=== PATIENT | male | born 1965 | race Caucasian/White ===

== ENCOUNTER 2024-02-13 16:14 | Emergency (ER) | payer OTHER, SELFPAY ==
--- NOTE | ~2024-02-13 | CT_ITS ---
EXAMINATION: CT abdomen pelvis wo con DATE: 02/13/2024 17:20 INDICATION: Low abdominal pain. Blood in stool. TECHNIQUE: Computed tomography (CT) of the abdomen and pelvis was performed without intravenous contr ast. Automated exposure control and iterative reconstruction technique were employed. The dose-length product was 1438.45 mGy-cm. COMPARISON: None. FINDINGS: The visualized portions of the lung bases demonstrate minimal atelectasis. No pleural effus ion. The heart size is normal. No pericardial effusion. There is diffuse hepatic steatosis. The gallb ladder, spleen, pancreas, adrenal glands, and kidneys are normal. There is no urolithiasis. There are scattered diverticula in the colon. There is wall thickening of the descending colon with surroundin g fat stranding, consistent with colitis. There are no dilated loops of bowel. The appendix is normal . There are no pathologically enlarged lymph nodes. There is no free intraperitoneal fluid. There is mild thoracic and lumbar spondylosis. IMPRESSION: 1. Colitis involving descending colon. Reviewed, dictated and finalized at location E.
[2024-02-13 16:16] VITALS: BP 164/89; PULSE 89; RESP 16; TEMP 36.3; O2SAT 100
--- NOTE | 2024-02-13 16:24 | ECG_ITS ---
SEE SCANNED COPY FOR CONFIRMED REPORT MTDD
--- NOTE | 2024-02-13 16:25 | ED.GIBLEED ---
HPI - GI Bleed General Chief complaint: GI Bleed Stated complaint: rectal bleeding Time Seen by Provider: 02/13/24 18:19 Focused HPI: 58 y/o M with history of hyperlipidemia presents to emergency department for blood in his vomit and stools that started yesterday. Patient states he had his tooth extracted 4 days ago and has been taking a lot of ibuprofen. States yesterday he had a watery bowel movement since and has been noticing blood with clots in his stool. States he vomited a few times which also had streaks of blood in it. He denies prior history of GI bleed, ulcers. He is not anticoagulated. He is reporting some intermittent left lower quadrant abdominal pain. Denies fever, urinary complaints. GENERAL: Well-appearing, well-nourished, and in no acute distress. HEAD: Normocephalic, atraumatic. CHEST: Clear to auscultation. ?No respiratory distress. HEART: Regular rate and rhythm.? NEURO: ?Alert and oriented x3. Patient screened in triage and initial orders placed.? ?Additional care and disposition to be based upon?diagnostic testing and treatment. Related Data Allergies Allergy/AdvReac Type Severity Reaction Status Date / Time No Known Allergies Allergy Unknown Verified 02/18/24 13:32 [facility] Family History Family History Father Family history of cardiovascular disease Acute myocardial infarction, Onset Age: 50 Social History Social History Smoking status: Current some day smoker Second hand tobacco smoke exposure: No Additional smoking assessment comments: Marijuana not tobacco user. Alcohol intake: current Substance use: current Substance use type: marijuana Lack of Transportation: No Lack of Food: Never True Current Housing: I Have Housing Concerned About Future Housing: No Difficulty Paying Gas/Electric Bills: No Difficulty Paying for Meds: No Currently Unemployed: No Education: Master's Degree or Higher Course Vital Signs Vital signs: Vital Signs Temperature 97.3 F L 02/13/24 16:16 Pulse Rate 89 02/13/24 16:16 Respiratory Rate 16 02/13/24 16:16 Blood Pressure 164/89 H 02/13/24 16:16 Pulse Oximetry 100 02/13/24 16:16 Oxygen Delivery Room Air 02/13/24 16:16 Temperature 97.8 F 02/13/24 20:14 Pulse Rate 62 02/13/24 20:14 Respiratory Rate 17 02/13/24 20:14 Blood Pressure 143/85 H 02/13/24 20:14 Pulse Oximetry 100 02/13/24 20:14 Oxygen Delivery Room Air 02/13/24 16:16 MDM - GI Bleed Lab Data 02/13/24 16:42 02/13/24 16:42 Labs: Lab Results 02/13/24 02/13/24 Range/Units 16:42 17:10 WBC 16.9 H (4.5-10.0) K/mm3 RBC 4.68 (4.6-6.20) M/mm3 Hgb 15.3 (14.0-18.0) g/dL Hct 43.5 (42.0-52.0) % MCV 92.9 (80-100) fl MCH 32.7 (26-34) pg MCHC 35.2 (32-36) g/dl RDW 12.0 (11.5-14.5) % Plt Count 271 (150-375) k/mm3 MPV 10.3 (7.4-10.4) fl Immature Gran % (Auto) 0.6 H (0-0.5) % Neut % (Auto) 87.9 H (45.5-73.1) % Lymph % (Auto) 5.5 L (18.3-44.2) % [place] % (Auto) 5.7 (2.6-8.5) % Eos % (Auto) 0.1 (0-4.4) % Baso % (Auto) 0.2 (0.2-1.2) % Lymph # (Auto) 0.92 (0.9-3.2) K/mm3 [place] # (Auto) 1.0 H (0.1-0.6) K/mm3 Eos # (Auto) 0.0 (0-0.3) K/mm3 Baso # (Auto) 0.0 (0.0-0.1) K/mm3 Abs Immat Gran (auto) 0.10 H (0.00-0.031) K/mm3 Absolute Neuts (auto) 14.9 H (1.3-6.7) K/mm3 Absolute Nucleated RBC 0.000 (0.0-0.012) K/mm3 Nucleated RBC % 0.0 (0.0-0.2) % PT 13.3 (11.1-14.7) Seconds INR 1.0 APTT 25.6 (22.3-36.8) Seconds Sodium 136 L (137-145) mmol/L Potassium 3.9 (3.4-5.0) mmol/L Chloride 103 (98-107) mmol/L Carbon Dioxide 26 (22-30) mmol/L Anion Gap 7 (4-12) mmol/L BUN 11 (9-20) mg/dL Creatinine 0.90 (0.7-1.3) mg/dL Estim Creat Clear Calc 105 ml/min Estimated GFR > 60 (59 - )
[2024-02-13 16:48] LABS: Basophils Percent Auto 0.2 % (0.2-1.2); Eosinophils Percent Auto 0.1 % (0-4.4); Hematocrit 43.5 % (42.0-52.0); Hemoglobin 15.3 g/dL (14.0-18.0); Immature Granulocyte Percent A 0.6 % (0-0.5); Lymphocytes Absolute Auto 0.92 K/mm3 (0.9-3.2); Lymphocytes Percent Auto 5.5 % (18.3-44.2); Mean Corpuscular HGB Conc 35.2 g/dl (32-36); Mean Corpuscular Hemoglobin 32.7 pg (26-34); Mean Corpuscular Volume 92.9 fl (80-100); Mean Platelet Volume 10.3 fl (7.4-10.4); Monocytes Percent Auto 5.7 % (2.6-8.5); Neutrophils Absolute Auto 14.9 K/mm3 (1.3-6.7); Neutrophils Percent Auto 87.9 % (45.5-73.1); Platelet Count Result 271 k/mm3 (150-375); Red Blood Count 4.68 M/mm3 (4.6-6.20); White Blood Count 16.9 K/mm3 (4.5-10.0)
[2024-02-13 16:59] LABS: Lactic Acid Reflex 1.5 mmol/L (0.7-2.0)
[2024-02-13 17:00] LABS: Prothrombin Time 13.3 Seconds (11.1-14.7)
[2024-02-13 17:01] LABS: Alanine Aminotransferase 31 U/L (6-50); Albumin Level 4.6 g/dL (3.5-5.1); Alkaline Phosphatase 76 U/L (38-126); Anion Gap 7 mmol/L (4-12); Aspartate Amino Transferase 25 U/L (17-59); Bilirubin,Total 0.8 mg/dL (0.2-1.3); Blood Urea Nitrogen 11 mg/dL (9-20); Calcium 9.4 mg/dL (8.4-10.2); Carbon Dioxide 26 mmol/L (22-30); Chloride 103 mmol/L (98-107); Estimated CRCL calculation 105 ml/min; Estimated Glomerular Filt Rate > 60; Glucose 169 mg/dL (65-110); Lipase 85 U/L (23-300); Magnesium 1.9 mg/dL (1.6-2.3); Partial Thromboplastin Time 25.6 Seconds (22.3-36.8); Potassium 3.9 mmol/L (3.4-5.0); Sodium 136 mmol/L (137-145)
[2024-02-13 17:17] LABS: Appearance Urine Clear (Clear); Bilirubin Urine Negative (Negative); Blood Urine Negative (Negative); Color Urine Yellow (Yellow); Glucose Urine UA Negative (Negative); Ketones Urine 2+ mg/dL (Negative); Leukocyte Esterase Ur Negative LEU/UL (Negative); Nitrate Urine Negative (Negative); Protein Urine Negative (Negative); Specific Grav Ur 1.014 (1.001-1.035); Urobilinogen Urine 0.2 mg/dL (<2.0); pH Urine 5.5 (5.0-9.0)
[2024-02-13 17:22] LABS: Add Urine Microscopic? NO
[2024-02-13 17:47] VITALS: BP 148/81; PULSE 94; RESP 16; O2SAT 96
[2024-02-13 18:45] VITALS: BP 140/83; PULSE 90; RESP 17; O2SAT 98
[2024-02-13] MEDS: AMOXICILLIN/CLAVULANATE K 875-125 MG TAB 1 TABLET PO (20:08)
[2024-02-13] MEDS: HYDROcodone/acetaminophen (*CRX) 5-325 MG TABLET 1 TAB PO (20:08)
[2024-02-13 20:14] VITALS: BP 143/85; PULSE 62; RESP 17; TEMP 36.6; O2SAT 100
== END 2024-02-13 20:15 | disposition home or self-care (01) ==
PROVIDERS: Physician Assistant; Emergency Provider Emergency Medicine; PCP Family Medicine
DX: K52.9 Noninfective gastroenteritis and colitis, unspecified (principal); E78.5 Hyperlipidemia, unspecified; F17.200 Nicotine dependence, unspecified, uncomplicated; R94.31 Abnormal electrocardiogram [ECG] [EKG]
CPT/HCPCS: 36415; 74176; 80053; 81003; 83605; 83690; 83735; 85025; 85610; 85730; 93005; 99284; A9270

== ENCOUNTER 2024-05-13 05:53 | Day surgery (SDC) | payer OTHER, SELFPAY ==
[2024-05-04 12:09] VITALS: BMI 35.9
[2024-05-07 13:36] VITALS: BMI 37.3
[2024-05-13 06:31] VITALS: BMI 36.2
[2024-05-13 06:35] VITALS: BMI 36.3
[2024-05-13 06:43] VITALS: BP 149/94; PULSE 75; RESP 20; TEMP 36.7; O2SAT 99
[2024-05-13 06:58] LABS: Glucose Point of Care 105 mg/dl (65-105)
--- NOTE | 2024-05-13 07:09 | PM.HPGS ---
History of Present Illness History of Present Illness Consent: Risks, benefits, and alternatives have been discussed and questions answered. Patient agrees to proceed with procedure. Chief complaint: Neoplasm screening. Narrative: Luis Fernando Avila is a 58 year old male presents for screening colonoscopy. Patient reports that his current weight appetite and bowel movements are normal. Patient denies abdominal pain. Patient relates that after a tooth extraction in January he experienced a small amount of bright red blood per rectum. He was seen in the emergency room and treated empirically for an infection. He has had no additional bleeding. His bowel habits currently are normal. Previous colonoscopy for screening 10 years ago was unremarkable. Family history is noncontributory. Review of Systems Review of Systems: All systems reviewed & are unremarkable except as noted in HPI and below PMFSH Past Medical History Medical History (Updated 05/13/24 @ 07:11 by Gordon Hawkins MD) Current smoker Mixed hyperlipidemia Obesity Family History Family History Father Family history of cardiovascular disease Acute myocardial infarction, Onset Age: 50 Social History Social History Smoking status: Current some day smoker Second hand tobacco smoke exposure: No Additional smoking assessment comments: Marijuana not tobacco user. Alcohol intake: current Alcohol use details: social Substance use: current Substance use type: marijuana Lack of Transportation: No Lack of Food: Never True Current Housing: I Have Housing Concerned About Future Housing: No Difficulty Paying Gas/Electric Bills: No Difficulty Paying for Meds: No Currently Unemployed: No Education: Master's Degree or Higher Living arrangements: with family Spiritual care concerns: No Meds Home Medications and Allergies Home Medications Medication Instructions Recorded Confirmed Type lovastatin 10 mg tablet 10 mg PO .qhs #90 tabs 11/24/23 05/13/24 Rx empagliflozin 10 mg tablet 10 mg PO DAILY #90 tabs 05/04/24 05/13/24 Rx (Jardiance) sodium,potassium,mag sulfates 17.5 See Rx Instructions PO .COMPLEX 05/04/24 Rx gram-3.13 gram-1.6 gram oral soln #354 mL (Suprep Bowel Prep Kit) Allergies Allergy/AdvReac Type Severity Reaction Status Date / Time metformin AdvReac Intermediate Diarrhea Verified 05/13/24 06:30 Vital Signs Vital Signs - 24 hr 05/13/24 06:43 Temperature 98.0 F Pulse Rate 75 Respiratory Rate 20 Blood Pressure 149/94 H Pulse Oximetry 99 Oxygen Delivery Room Air Exam Narrative: Physical exam reveals patient to be alert. Vital signs stable. HEENT exam is unremarkable. Patient is anicteric. Lungs are clear to auscultation and to percussion. Heart is without murmur or extra sounds. Abdomen bowel sounds are present soft nontender with no organomegaly. Digital external rectal exam normal. Assessment and Plan Assessment and plan (1) Colon cancer screening: Code(s): Z12.11 - Encounter for screening for malignant neoplasm of colon Status: Acute Assessment and Plan: The patient presents today for screening colonoscopy. He appears to be at average risk for colon polyps. Further recommendations may be given after endoscopy.
--- NOTE | 2024-05-13 07:11 | P.PNAN_ITS ---
Anes - Initial Pre Proc Eval Procedure: Operation Date: 05/13/24 07:30 Proposed Procedures p Screening Colonoscopy - Jonas Taylor MD Date/Time: 05/13/24 07:11 Surgeon: Jonas Taylor MD Pre Op Diagnosis: Neoplasm screening. Patient Data Age: 58 Gender: M Height: 1.83 m Weight: 121.1 kg Last Vital Signs Temp 36.7 C 05/13/24 06:43 Pulse 75 05/13/24 06:43 Resp 20 05/13/24 06:43 BP 149/94 H 05/13/24 06:43 Pulse Ox 99 05/13/24 06:43 O2 Del Method Room Air 05/13/24 06:43 Allergies Allergy/AdvReac Type Severity Reaction Status Date / Time metformin AdvReac Intermediate Diarrhea Verified 05/13/24 06:30 Home Medications Medication Instructions Recorded Confirmed Type lovastatin 10 mg tablet 10 mg PO .qhs #90 tabs 11/24/23 05/13/24 Rx empagliflozin 10 mg tablet 10 mg PO DAILY #90 tabs 05/04/24 05/13/24 Rx (Jardiance) sodium,potassium,mag sulfates 17.5 See Rx Instructions PO .COMPLEX 05/04/24 Rx gram-3.13 gram-1.6 gram oral soln #354 mL (Suprep Bowel Prep Kit) Laboratory Tests 05/13/24 06:54 POC Capillary Glucose 105 mg/dl (65-105) Patient hx anesthesia problems: none Family hx anesthesia problems: none Results Review: All pre-operative results and documents have been reviewed as part of the pre- operative evaluation. [facility] Past Medical History Medical History (Updated 05/13/24 @ 07:11 by Gordon Hawkins MD) Current smoker Mixed hyperlipidemia Obesity Family History Family History Father Family history of cardiovascular disease Acute myocardial infarction, Onset Age: 50 Social History Social History Smoking status: Current some day smoker Second hand tobacco smoke exposure: No Additional smoking assessment comments: Marijuana not tobacco user. Alcohol intake: current Alcohol use details: social Substance use: current Substance use type: marijuana Lack of Transportation: No Lack of Food: Never True Current Housing: I Have Housing Concerned About Future Housing: No Difficulty Paying Gas/Electric Bills: No Difficulty Paying for Meds: No Currently Unemployed: No Education: Master's Degree or Higher Living arrangements: with family Spiritual care concerns: No Anes - Eval Final PreProcedure Day of Procedure 05/13/24 07:11 Patient weight: obese Heart: regular rate and rhythm Lungs: clear to auscultation Airway: Mallampati scale class II Neurological: alert and oriented Last oral intake: >/= 8 hours ASA classification: III Emergent: no Anesthetic plan: proceed Anesthesia type and monitoring: general GIVS and standard monitoring Results Review: All pre-operative results and documents have been reviewed as part of the pre- operative evaluation. Informed Consent: The patient's anesthetic plan and its attendant risks and benefits were discussed with the patient/family/POA. Questions were solicited and answers provided to the satisfaction of the patient/family/POA.
[2024-05-13] MEDS: LACTATED RINGERS 1,000 ML 150 ML IV CONT (07:15)
[2024-05-13 07:41] VITALS: BP 106/71; PULSE 78; RESP 18; O2SAT 97
[2024-05-13 07:51] VITALS: BP 117/75; PULSE 71; RESP 20; O2SAT 95
[2024-05-13 08:01] VITALS: BP 125/73; PULSE 68; RESP 20; O2SAT 97
--- NOTE | 2024-05-13 08:18 | WPDANESPN ---
Anes - Prog Note Post-Op Date/Time: 05/13/24 08:18 Cardiovascular status: normal Respiratory status: normal Airway patency: baseline Mental status: baseline Post-Op hydration status: normal Vital Signs: Last Vital Signs Temp 36.7 C 05/13/24 06:43 Pulse 71 05/13/24 07:51 Resp 20 05/13/24 07:51 BP 117/75 05/13/24 07:51 Pulse Ox 95 05/13/24 07:51 O2 Del Method Room Air 05/13/24 07:51 Pain Score (VAS): 0/10 I/O: Intake & Output 05/12/24 05/13/24 05/13/24 23:59 07:59 15:59 Intake Total 300 50 Balance 300 50 05/13/24 06:54 POC Capillary Glucose 105 Patient Feedback: Patient satisfied with anesthetic care.
== END 2024-05-13 08:14 | disposition home or self-care (01) ==
PROVIDERS: PCP Family Medicine; Visit Provider Internal Medicine Gastroenterology
PROC: 0DJD8ZZ Inspection of Lower Intestinal Tract, Via Natural or Artificial Opening Endoscopic (ICD-10-PCS; CPT 45378; principal; 2024-05-13 07:30)
DX: Z12.11 Encounter for screening for malignant neoplasm of colon (principal); D12.5 Benign neoplasm of sigmoid colon; K57.30 Diverticulosis of large intestine without perforation or abscess without bleeding; K64.8 Other hemorrhoids
CPT/HCPCS: 45385

== ENCOUNTER 2024-05-13 07:00 | Outpatient (NON) | payer OTHER, SELFPAY | END 2024-05-13 07:01 | disposition home or self-care (01) | LOC: ANHLAB 05-14 09:48 | PROVIDERS: PCP Family Medicine; Visit Provider Internal Medicine Gastroenterology | DX: Z12.11 Encounter for screening for malignant neoplasm of colon (principal) | CPT/HCPCS: 88305 ==

== ENCOUNTER 2024-09-13 15:12 | Emergency (ER) | payer OTHER, SELFPAY ==
--- NOTE | ~2024-09-13 | CT_ITS ---
EXAMINATION: CT abdomen pelvis wo con DATE: 09/13/2024 17:18 INDICATION: Low abdominal pain. Flank pain. TECHNIQUE: Computed tomography (CT) of the abdomen and pelvis was performed without intravenous contr ast. Automated exposure control and iterative reconstruction technique were employed. The dose-length product was 1441.90 mGy-cm. COMPARISON: CT abdomen and pelvis 02/13/2024 FINDINGS: The visualized portions of the lung bases are clear without pneumonia or pleural effusion. The heart size is normal. No pericardial effusion. There is a small sliding hiatal hernia. There is d iffuse hepatic steatosis. The gallbladder, spleen, pancreas, adrenal glands, and kidneys are normal. There is no urolithiasis. There are scattered diverticula in the colon. There is fat stranding around a sigmoid diverticulum, consistent with diverticulitis. The appendix is normal. There are no dilated loops of bowel. There are no pathologically enlarged lymph nodes. There is no free intraperitoneal f luid. There is mild thoracic and lumbar spondylosis. IMPRESSION: 1. Acute sigmoid diverticulitis. No perforation or abscess. Reviewed, dictated and finalized at location A. [employer]
--- NOTE | ~2024-09-13 | US_ITS ---
EXAMINATION: US scrotum doppler DATE: 09/13/2024 18:35 INDICATION: Testicular pain TECHNIQUE: Sonographic evaluation of the scrotum was performed assessing grayscale appearance and col or Doppler flow. Spectral Doppler evaluation was also performed. COMPARISON: None. FINDINGS: RIGHT TESTICLE: The right testicle measures 3.9 x 2.6 x 3 point cm. Arterial and venous flow are present. Moderate right-sided hydrocele is present. RIGHT EPIDIDYMIS: The right epididymis measures 12 mm. Prominent vasculature with Valsalva. Pre-Valsalva measurement less than 3 mm. LEFT TESTICLE: The left testicle measures 4.4 x 2.4 x 2.9 cm. Arterial and venous flow are demonstrated. Moderate left-sided hydrocele is present. LEFT EPIDIDYMIS: The left epididymis measures 11 mm. Well-circumscribed anechoic avascular focus within the left epididymis measuring 7 x 3 x 7 mm, consis tent with an epididymal head cyst Prominent vasculature with Valsalva. Pre-Valsalva measurement less than 3 mm. IMPRESSION: Left epididymal head simple cyst measuring 7 mm in greatest dimension. Moderate hydrocele detected bilaterally. Reviewed, dictated and finalized at location [facility]
[2024-09-13 15:19] VITALS: BP 162/85; PULSE 80; RESP 16; TEMP 36.4; O2SAT 98
--- NOTE | 2024-09-13 16:58 | ED_ITS ---
HPI - Abdominal Pain General Chief Complaint: Abdominal Pain <JORDYN Mccoy Last Filed: 09/13/24 17:06> Stated Complaint: kidney stone <JORDYN Mccoy Last Filed: 09/13/24 17:06> Time Seen by Provider: 09/13/24 16:59 <Peggy Cadet PA-C - Last Filed: 09/13/24 17:06> Focused HPI: Patient is a 59 y/o male who presents saúl the ED with c/o lower abd/flank pain. Patient reports over the last 1 week, he has been having intermittent waves of pain throughout his right lower abdomen, pain in his right flank region. He also reports intermittent pain into his right testicle. [place] pain will become very severe for 5-10 seconds at a time before resolving. He also reports frequent headaches, intermittent diaphoresis, nausea related to the pain, denies vomiting. Denies diarrhea, constipation, fevers. Denies testicular pain, dysuria, hematuria. Denies previous hx of kidney stone. GENERAL: Well-appearing, obese with BMI of 36.6, and in no acute distress. HEAD: Normocephalic, atraumatic. CHEST: Clear to auscultation. ?No respiratory distress. HEART: Regular rate and rhythm.? ABD: Mild TTP in RLQ, +CVA on R. Normoactive BS. NEURO: ?Alert and oriented x3. Patient screened in triage and initial orders placed.? ?Additional care and disposition to be based upon?diagnostic testing and treatment. <Peggy Cadet PA-C - Last Filed: 09/13/24 17:06> Focused HPI: Patient is a 59 y/o male who presents saúl the ED with c/o lower abd/flank pain. Patient reports over the last 1 week, he has been having intermittent waves of pain throughout his right lower abdomen, pain in his right flank region. He also reports intermittent pain into his right testicle. States pain will become very severe for 5-10 seconds at a time before resolving. He also reports frequent headaches, intermittent diaphoresis, nausea related to the pain, denies vomiting. Denies diarrhea, constipation, fevers. Denies testicular pain, dysuria, hematuria. Denies previous hx of kidney stone. GENERAL: Well-appearing, obese with BMI of 36.6, and in no acute distress. HEAD: Normocephalic, atraumatic. CHEST: Clear to auscultation. ?No respiratory distress. HEART: Regular rate and rhythm.? ABD: Mild TTP in RLQ, +CVA on R. Normoactive BS. NEURO: ?Alert and oriented x3. Patient screened in triage and initial orders placed.? ?Additional care and disposition to be based upon?diagnostic testing and treatment. Agree with triage assessment, patient states that he does not have any testicular pain, denies any tender swollen testes, states that his pain in his lower abdomen radiates to his groin region. <Mark Musa MD - Last Filed: 09/14/24 07:31> Source: patient <Peggy Cadet PA-C - Last Filed: 09/13/24 17:06> Mode of arrival: ambulatory <Peggy Cadet PA-C - Last Filed: 09/13/24 17:06> Limitations: no limitations <JORDYN Mccoy Last Filed: 09/13/24 17:06> Related Data Allergies/Adverse Reactions: Allergies Allergy/AdvReac Type Severity Reaction Status Date / Time metformin AdvReac Intermediate Diarrhea Verified 09/13/24 15:20 <Peggy Cadet PA-C - Last Filed: 09/13/24 17:06> Review of Systems Review of Systems: All systems are reviewed and are negative unless stated otherwise in the HPI. <Mark Musa MD - Last Filed: 09/14/24 07:31> PMFSH Past Medical History Medical History: Medical History Current smoker Mixed hyperlipidemia Obesity <Peggy Cadet PA-C - Last Filed: 09/13/24 17:06> Family History Family History: Family History Father Family history of cardiovascular disease Acute myocardial infarction, Onset Age: 50 <Peggy Cadet PA-C - Last Filed: 09/13/24 17:06> Social History Social History: Social History Smoking status: Current some day smoker Second hand tobacco smoke exposure: No Additional smoking assessment comments: Marijuana not tobacco user. Alcohol intake: current Alcohol use details: social Substance use: current Substance use type: marijuana Lack of Transportation: No Lack of Food: Never True Current Housing: I Have Housing Concerned About Future Housing: No Difficulty Paying Gas/Electric Bills: No Difficulty Paying for Meds: No Currently Unemployed: No Education: Master's Degree or Higher Living arrangements: with family Spiritual care concerns: No <Peggy Cadet PA-C - Last Filed: 09/13/24 17:06> Exam Narrative: General: Alert, awake, afebrile, in no acute distress. HEENT: PERRL, no rhinorrhea, no post nasal drip, oropharynx clear. Neck: Trachea midline, no JVD, no lymphadenopathy. Cardiovascular: Regular rate and rhythm, no murmurs, rubs or gallops, no peripheral edema. Respiratory: Clear to auscultation bilaterally, no tachypnea, no wheezing, no rhonchi, no rubs, no respiratory distress. Abdomen: Soft, mild tenderness to palpation over the bilateral lower quadrants, nondistended, no rebound, no guarding, no peritoneal signs. Musculoskeletal: No joint swelling or deformity, normal muscle tone. Skin: No rashes or petechia, no signs of infection. Psychiatric: Alert and oriented, normal behavior and judgment for situation. Neurological: Alert and oriented to person, place, and time. Follows all commands. No focal deficits, speech is clear and fluent. <Mark Musa MD - Last Filed: 09/14/24 07:31> Course Vital Signs Vital signs: Vital Signs Temperature 97.6 F 09/13/24 15:19 Pulse Rate 80 09/13/24 15:19 Respiratory Rate 16 09/13/24 15:19 Blood Pressure 162/85 H 09/13/24 15:19 Pulse Oximetry 98 09/13/24 15:19 Oxygen Delivery Room Air 09/13/24 15:19 Temperature 97.9 F 09/13/24 20:06 Pulse Rate 88 09/13/24 20:06 Respiratory Rate 16 09/13/24 20:06 Blood Pressure 165/89 H 09/13/24 20:06 Pulse Oximetry 99 09/13/24 20:06 Oxygen Delivery Room Air 09/13/24 15:19 <Peggy Cadet PA-C - Last Filed: 09/13/24 17:06> Vital Signs Temperature 97.6 F 09/13/24 15:19 Pulse Rate 80 09/13/24 15:19 Respiratory Rate 16 09/13/24 15:19 Blood Pressure 162/85 H 09/13/24 15:19 Pulse Oximetry 98 09/13/24 15:19 Oxygen Delivery Room Air 09/13/24 15:19 Temperature 97.9 F 09/13/24 20:06 Pulse Rate 88 09/13/24 20:06 Respiratory Rate 16 09/13/24 20:06 Blood Pressure 165/89 H 09/13/24 20:06 Pulse Oximetry 99 09/13/24 20:06 Oxygen Delivery Room Air 09/13/24 15:19 <Mark Musa MD - Last Filed: 09/14/24 07:31> MDM - Abdominal Pain MDM Narrative Medical decision making narrative: MSE by MICHAEL in triage. <Peggy Cadet PA-C - Last Filed: 09/13/24 17:06> MSE by MICHAEL in triage. The patient was evaluated by myself in the emergency department. History is obtained from patient who is an independent historian and physical exam was performed. External medical records were reviewed at this time. IV was established and pertinent tests were ordered. Laboratory results obtained revealing a leukocytosis of 11.9, otherwise unremarkable. Urinalysis revealed 3+ ketones otherwise unremarkable. Patient was administered 1 L IV fluid bolus with normal saline. Imaging studies obtained included CT abdomen and pelvis with IV contrast and scrotal ultrasound which was independently interpreted by me revealing acute sigmoid diverticulitis without perforation or abscess and a simple 7 mm left epididymal cyst, otherwise unremarkable, which is pending final radiology interpretation. Differential diagnosis considerations include renal colic, hydronephrosis, pyelonephritis, appendicitis, diverticulitis, epididymitis, hydrocele, varicocele. Comorbidities impacting this visit include none. I have evaluated and discussed social determinants of health with the patient that could potentially impact subsequent diagnosis and treatment plans. On repeat assessment of the patient, reevaluation revealed that the patient is doing well and is in no acute distress. Patient symptoms have improved since he arrived to our emergency department. Repeat vital signs were all reviewed and noted to be stable. Differential diagnosis and treatment plan were discussed with the patient at bedside. Patient agrees with discussion and after shared medical decision making agrees with discharge. All questions were answered to the patient's satisfaction. Patient will follow up with GI and Urology in 3-5 days. Script for ciprofloxacin, Augmentin, Flagyl and Slaton were sent to patient's pharmacy and he was instructed to take them as prescribed. Patient was provided with strict return precautions and instructed to return to the emergency department if any new or worsening symptoms develop. The patient was discharged in stable condition. <Mark Musa MD - Last Filed: 09/14/24 07:31> Lab Data Result diagrams: 09/13/24 17:08 09/13/24 17:08 <Peggy Cadet PA-C - Last Filed: 09/13/24 17:06> Labs: Lab Results 09/13/24 09/13/24 Range/Units 17:08 20:01 WBC 11.9 H (4.5-10.0) K/mm3 RBC 4.75 (4.6-6.20) M/mm3 Hgb 15.4 (14.0-18.0) g/dL Hct 45.2 (42.0-52.0) % MCV 95.2 (80-100) fl MCH 32.4 (26-34) pg MCHC 34.1 (32-36) g/dl RDW 12.3 (11.5-14.5) % Plt Count 298 (150-375) k/mm3 MPV 10.0 (7.4-10.4) fl Immature Gran % (Auto) 0.5 (0-0.5) % Neut % (Auto) 71.1 (45.5-73.1) % Lymph % (Auto) 17.9 L (18.3-44.2) % [place] % (Auto) 7.7 (2.6-8.5) % Eos % (Auto) 2.4 (0-4.4) % Baso % (Auto) 0.4 (0.2-1.2) % Lymph # (Auto) 2.13 (0.9-3.2) K/mm3 [place] # (Auto) 0.9 H (0.1-0.6) K/mm3 Eos # (Auto) 0.3 (0-0.3) K/mm3 Baso # (Auto) 0.1 (0.0-0.1) K/mm3 Abs Immat Gran (auto) 0.06 H (0.00-0.031) K/mm3 Absolute Neuts (auto) 8.5 H (1.3-6.7) K/mm3 Absolute Nucleated RBC 0.000 (0.0-0.012) K/mm3 Nucleated RBC % 0.0 (0.0-0.2) % Sodium 135 L (137-145) mmol/L Potassium 4.4 (3.4-5.0) mmol/L Chloride 97 L (98-107) mmol/L Carbon Dioxide 29 (22-30) mmol/L Anion Gap 9 (4-12) mmol/L BUN 13 (9-20) mg/dL Creatinine 0.90 (0.7-1.3) mg/dL Estim Creat Clear Calc 102 ml/min Estimated GFR > 60 (59 - ) Glucose 101 (65-110) mg/dL Calcium 9.3 (8.4-10.2) mg/dL Total Bilirubin 1.3 (0.2-1.3) mg/dL AST 35 (17-59) U/L ALT 26 (6-50) U/L Alkaline Phosphatase 68 (38-126) U/L Total Protein 9.0 H (6.3-8.2) g/dL Albumin 4.8 (3.5-5.1) g/dL Lipase 97 (23-300) U/L Urine Color Yellow (Yellow) Urine Appearance Clear (Clear) Urine pH 5.5 (5.0-9.0) Ur Specific [place] 1.033 (1.001-1.035) Urine Protein Trace (Negative) mg/dL Urine Glucose (UA) 3+ H (Negative) mg/dL Urine Ketones 3+ H (Negative) mg/dL Ur Blood (Man) Negative (Negative) Urine Nitrate Negative (Negative) Urine Bilirubin Negative (Negative) Urine Urobilinogen 0.2 (<2.0) mg/dL Leukocyte Esterase Rfl Negative (Negative) JAD/UL Urine RBC 0-2 (0-2) /hpf Urine WBC 0-5 (0-3) /hpf Ur Squamous Epith Cells None seen (Few) /hpf Urine Bacteria None seen /hpf Urine Casts 0-2 <Peggy Cadet PA-C - Last Filed: 09/13/24 17:06> Lab Results 09/13/24 09/13/24 Range/Units 17:08 20:01 WBC 11.9 H (4.5-10.0) K/mm3 RBC 4.75 (4.6-6.20) M/mm3 Hgb 15.4 (14.0-18.0) g/dL Hct 45.2 (42.0-52.0) % MCV 95.2 (80-100) fl MCH 32.4 (26-34) pg MCHC 34.1 (32-36) g/dl RDW 12.3 (11.5-14.5) % Plt Count 298 (150-375) k/mm3 MPV 10.0 (7.4-10.4) fl Immature Gran % (Auto) 0.5 (0-0.5) % Neut % (Auto) 71.1 (45.5-73.1) % Lymph % (Auto) 17.9 L (18.3-44.2) % [place] % (Auto) 7.7 (2.6-8.5) % Eos % (Auto) 2.4 (0-4.4) % Baso % (Auto) 0.4 (0.2-1.2) % Lymph # (Auto) 2.13 (0.9-3.2) K/mm3 [place] # (Auto) 0.9 H (0.1-0.6) K/mm3 Eos # (Auto) 0.3 (0-0.3) K/mm3 Baso # (Auto) 0.1 (0.0-0.1) K/mm3 Abs Immat Gran (auto) 0.06 H (0.00-0.031) K/mm3 Absolute Neuts (auto) 8.5 H (1.3-6.7) K/mm3 Absolute Nucleated RBC 0.000 (0.0-0.012) K/mm3 Nucleated RBC % 0.0 (0.0-0.2) % Sodium 135 L (137-145) mmol/L Potassium 4.4 (3.4-5.0) mmol/L Chloride 97 L (98-107) mmol/L Carbon Dioxide 29 (22-30) mmol/L Anion Gap 9 (4-12) mmol/L BUN 13 (9-20) mg/dL Creatinine 0.90 (0.7-1.3) mg/dL Estim Creat Clear Calc 102 ml/min Estimated GFR > 60 (59 - ) Glucose 101 (65-110) mg/dL Calcium 9.3 (8.4-10.2) mg/dL Total Bilirubin 1.3 (0.2-1.3) mg/dL AST 35 (17-59) U/L ALT 26 (6-50) U/L Alkaline Phosphatase 68 (38-126) U/L Total Protein 9.0 H (6.3-8.2) g/dL Albumin 4.8 (3.5-5.1) g/dL Lipase 97 (23-300) U/L Urine Color Yellow (Yellow) Urine Appearance Clear (Clear) Urine pH 5.5 (5.0-9.0) Ur Specific [place] 1.033 (1.001-1.035) Urine Protein Trace (Negative) mg/dL Urine Glucose (UA) 3+ H (Negative) mg/dL Urine Ketones 3+ H (Negative) mg/dL Ur Blood (Man) Negative (Negative) Urine Nitrate Negative (Negative) Urine Bilirubin Negative (Negative) Urine Urobilinogen 0.2 (<2.0) mg/dL Leukocyte Esterase Rfl Negative (Negative) JAD/UL Urine RBC 0-2 (0-2) /hpf Urine WBC 0-5 (0-3) /hpf Ur Squamous Epith Cells None seen (Few) /hpf Urine Bacteria None seen /hpf Urine Casts 0-2 <Mark Musa MD - Last Filed: 09/14/24 07:31> Imaging Data Radiologist's impression: ITS Impressions Abdomen/Pelvis CT 09/13/24 17:22 IMPRESSION: 1. Acute sigmoid diverticulitis. No perforation or abscess. Scrotum Ultrasound 09/13/24 18:41 IMPRESSION: Left epididymal head simple cyst measuring 7 mm in greatest dimension. Moderate hydrocele detected bilaterally. <Peggy Cadet PA-C - Last Filed: 09/13/24 17:06> ITS Impressions Abdomen/Pelvis CT 09/13/24 17:22 IMPRESSION: 1. Acute sigmoid diverticulitis. No perforation or abscess. Scrotum Ultrasound 09/13/24 18:41 IMPRESSION: Left epididymal head simple cyst measuring 7 mm in greatest dimension. Moderate hydrocele detected bilaterally. <Mark Musa MD - Last Filed: 09/14/24 07:31> Discharge Plan Discharge Clinical Impression: Acute diverticulitis, Cyst of epididymis <Peggy Cadet PA-C - Last Filed: 09/13/24 17:06> Patient Disposition: Home, Self-Care <JORDYN Mccoy Last Filed: 09/13/24 17:06> Condition: Improved <JORDYN Mccoy Last Filed: 09/13/24 17:06> Instructions: Antibiotic Form, Diverticulitis (DC), Abdominal Pain (ED) <Peggy Cadet PA-C - Last Filed: 09/13/24 17:06> Additional Instructions: Please follow-up with the GI doctor you were provided with today within the next 3-5 days. Take the prescribed antibiotics as instructed. Use the prescribed pain medication as needed for pain. Refrain from drinking alcohol as it interacts with 1 of your antibiotics, Flagyl. Return to the emergency department if any new or worsening symptoms develop. <Peggy Cadet PA-C - Last Filed: 09/13/24 17:06> Prescriptions: New metronidazole 500 mg tablet 500 mg PO Q12H 10 Days Qty: 20 0RF amoxicillin-pot clavulanate 875-125 mg tablet 1 tablet PO Q12H 10 Days Qty: 20 0RF ciprofloxacin HCl 500 mg tablet 500 mg PO Q12H 10 Days Qty: 20 0RF hydrocodone-acetaminophen 5-325 mg tablet 1 tablet PO Q8H PRN (Reason: pain) Qty: 10 0RF No Action sodium,potassium,mag sulfates [Suprep Bowel Prep Kit] 17.5-3.13-1.6 gram recon soln See Rx Instructions PO .COMPLEX Qty: 354 0RF Rx Instructions: Take as directed per Written instructions that were mailed to you. Beronicadiance 10 mg tablet 10 mg PO DAILY Qty: 90 1RF lovastatin 10 mg tablet 10 mg PO .qhs Qty: 90 1RF <Peggy Cadet PA-C - Last Filed: 09/13/24 17:06> Follow-up/Referrals: Angus Guzman MD [Physician] - 1 Week Luis Fernando Tellez MD [Primary Care Provider] - 1 Week Efren Hendrix MD [Physician] - 3 Days <Peggy Cadet PA-C - Last Filed: 09/13/24 17:06> Time of Disposition: 20:24 <Peggy Cadet PA-C - Last Filed: 09/13/24 17:06> 20:24 <Mark Musa MD - Last Filed: 09/14/24 07:31>
[2024-09-13 17:16] LABS: Basophils Absolute Auto 0.1 K/mm3 (0.0-0.1); Basophils Percent Auto 0.4 % (0.2-1.2); Eosinophils Absolute Auto 0.3 K/mm3 (0-0.3); Eosinophils Percent Auto 2.4 % (0-4.4); Hematocrit 45.2 % (42.0-52.0); Hemoglobin 15.4 g/dL (14.0-18.0); Immature Granulocyte Absolute 0.06 K/mm3 (0.00-0.031); Immature Granulocyte Percent A 0.5 % (0-0.5); Lymphocytes Absolute Auto 2.13 K/mm3 (0.9-3.2); Lymphocytes Percent Auto 17.9 % (18.3-44.2); Mean Corpuscular HGB Conc 34.1 g/dl (32-36); Mean Corpuscular Hemoglobin 32.4 pg (26-34); Mean Corpuscular Volume 95.2 fl (80-100); Monocytes Absolute Auto 0.9 K/mm3 (0.1-0.6); Monocytes Percent Auto 7.7 % (2.6-8.5); Neutrophils Absolute Auto 8.5 K/mm3 (1.3-6.7); Neutrophils Percent Auto 71.1 % (45.5-73.1); Platelet Count Result 298 k/mm3 (150-375); Red Blood Count 4.75 M/mm3 (4.6-6.20); Red Cell Distribution Width 12.3 % (11.5-14.5); White Blood Count 11.9 K/mm3 (4.5-10.0)
[2024-09-13 17:36] LABS: Alanine Aminotransferase 26 U/L (6-50); Albumin Level 4.8 g/dL (3.5-5.1); Alkaline Phosphatase 68 U/L (38-126); Anion Gap 9 mmol/L (4-12); Aspartate Amino Transferase 35 U/L (17-59); Bilirubin,Total 1.3 mg/dL (0.2-1.3); Blood Urea Nitrogen 13 mg/dL (9-20); Calcium 9.3 mg/dL (8.4-10.2); Carbon Dioxide 29 mmol/L (22-30); Chloride 97 mmol/L (98-107); Estimated CRCL calculation 102 ml/min; Estimated Glomerular Filt Rate > 60; Glucose 101 mg/dL (65-110); Lipase 97 U/L (23-300); Potassium 4.4 mmol/L (3.4-5.0); Sodium 135 mmol/L (137-145)
[2024-09-13 20:06] VITALS: BP 165/89; PULSE 88; RESP 16; TEMP 36.6; O2SAT 99
[2024-09-13 20:21] LABS: Add Urine Microscopic? YES; Appearance Urine Clear (Clear); Bacteria Urine None Seen /hpf; Bilirubin Urine Negative (Negative); Blood Urine Negative (Negative); Color Urine Yellow (Yellow); Glucose Urine UA 3+ mg/dL (Negative); Ketones Urine 3+ mg/dL (Negative); Leukocyte Esterase Ur Negative LEU/UL (Negative); Nitrate Urine Negative (Negative); Non Pathogenic Casts 0-2; Protein Urine Trace mg/dL (Negative); RBC Urine 0-2 /hpf (0-2); Specific Grav Ur 1.033 (1.001-1.035); Squamous Epithelial Cell Urine None Seen /hpf (Few); Urobilinogen Urine 0.2 mg/dL (<2.0); WBC Urine 0-5 /hpf (0-3); pH Urine 5.5 (5.0-9.0)
[2024-09-13] MEDS: HYDROcodone/acetaminophen (*CRX) 5-325 MG TABLET 1 TAB PO (20:25)
[2024-09-13] MEDS: AMOXICILLIN/CLAVULANATE K 875-125 MG TAB 1 TABLET PO (20:25)
[2024-09-13] MEDS: CIPROFLOXACIN 500 MG TAB PO (20:26)
[2024-09-13] MEDS: metroNIDAZOLE 500 MG TABLET PO (20:26)
== END 2024-09-13 20:25 | disposition home or self-care (01) ==
PROVIDERS: Physician Assistant; Emergency Provider Emergency Medicine; PCP Family Medicine
DX: K57.32 Diverticulitis of large intestine without perforation or abscess without bleeding (principal); N50.3 Cyst of epididymis; E78.2 Mixed hyperlipidemia; E66.9 Obesity, unspecified; Z68.36 Body mass index [BMI] 36.0-36.9, adult; F17.200 Nicotine dependence, unspecified, uncomplicated; N43.3 Hydrocele, unspecified; Z79.84 Long term (current) use of oral hypoglycemic drugs; Z79.899 Other long term (current) drug therapy
CPT/HCPCS: 36415; 74176; 76870; 80053; 81001; 83690; 85025; 93976; 99284; A9270